=== PATIENT | male | born 1965 | race Caucasian/White ===

== ENCOUNTER 2016-07-03 09:23 | Emergency (ER) | payer OTHER ==
[~2016-07-03] VITALS: Ht 170.2 cm; Wt 80.0 kg
[~2016-07-03 09:23] MED LIST: ALBU8I INH; ENAL10TA7 PO; LEVA500T33 PO; MEDR4PAK3 PO
[2016-07-03 09:26] VITALS: BP 160/84; PULSE 111; RESP 24; TEMP 98.1; O2SAT 100
[2016-07-03 09:41] VITALS: BP 148/98; PULSE 93; RESP 18; O2SAT 100
[2016-07-03 09:44] VITALS: BP 148/89; PULSE 84; RESP 18; O2SAT 100
[2016-07-03] MEDS ORDERED: ONDANSETRON HCL 4 MG/2 ML VIAL IV PUSH ONE (09:45)
[2016-07-03] MEDS ORDERED: MORPHINE SULFATE 4 MG/ML INJ IV PUSH ONE (09:45)
[2016-07-03] MEDS ORDERED: ENAL10TA PO (09:56)
[2016-07-03] MEDS ORDERED: SODIUM CHLORID 0.9% 500 ML INJ 500 ML IV ONE (10:00)
[2016-07-03 10:24] LABS: AUTOMATED NEUTROPHIL # 4.4 TH/MM3 (1.8-7.7); BASOPHIL # 0.1 TH/MM3 (0-0.2); BASOPHIL % 1.2 % (0.0-2.0); EOSINOPHIL # 0.2 TH/MM3 (0-0.4); EOSINOPHIL % 2.2 % (0.0-4.0); HEMATOCRIT 43.4 % (39.0-51.0); HEMO FLAGS DIFF FINAL; LYMPH % 33.5 % (9.0-44.0); LYMPHOCYTE # 2.6 TH/MM3 (1.0-4.8); MEAN CELL VOLUME 97.6 FL (80.0-100.0); MEAN CORPUSCULAR HEMOGLOBIN 33.6 PG (27.0-34.0); MEAN CORPUSCULAR HGB CONC 34.4 % (32.0-36.0); MONO % 7.9 % (0.0-8.0); NEUT % 55.2 % (16.0-70.0); PLATELET COUNT 304 TH/MM3 (150-450); RED BLOOD COUNT 4.45 MIL/MM3 (4.50-5.90); RED CELL DISTRIBUTION WIDTH 13.2 % (11.6-17.2); WHITE BLOOD COUNT 7.9 TH/MM3 (4.0-11.0)
[2016-07-03 10:47] LABS: ALT (GPT) 25 U/L (12-78); ANION GAP 8 MEQ/L (5-15); AST (GOT) 15 U/L (15-37); BICARBONATE 26.5 MEQ/L (21.0-32.0); BLOOD UREA NITROGEN 10 MG/DL (7-18); CHLORIDE 108 MEQ/L (98-107); GLOMERULAR FILTRATION RATE 75 ML/MIN (>89); POTASSIUM 4.2 MEQ/L (3.5-5.1); SODIUM (NA) 142 MEQ/L (136-145)
[2016-07-03 10:49] LABS: ALKALINE PHOSPHATASE 103 U/L (45-117); TOTAL BILIRUBIN ADULT 0.5 MG/DL (0.2-1.0)
[2016-07-03 11:10] VITALS: BP 148/98; PULSE 110; RESP 20; O2SAT 99
[2016-07-03] MEDS ORDERED: IOHEXOL 350 MG/ML 10 ML VIAL (for RAD DIAG) IV ONE (11:39)
--- NOTE | 2016-07-03 11:42 | RADRPT ---
EXAM DATE/TIME: 07/03/2016 11:08 [facility] COMPARISON: No previous studies available for comparison. INDICATIONS : Lower abdominal pain and constipation for five days. IV CONTRAST: 71 cc Omnipaque 350 (iohexol) IV ORAL CONTRAST: No oral contrast ingested. RADIATION DOSE: 9.96 CTDIvol (mGy) MEDICAL HISTORY : Hypertension. SURGICAL HISTORY : None. ENCOUNTER: Initial ACUITY: 4 - 6 days PAIN SCALE: 5/10 LOCATION: Abdomen TECHNIQUE: Volumetric scanning of the abdomen and pelvis was performed. Using automated exposure control and ad justment of the mA and/or kV according to patient size, radiation dose was kept as low as reasonably achievable to obtain optimal diagnostic quality images. FINDINGS: LOWER LUNGS: The visualized lower lungs are clear. LIVER: Homogeneous density without lesion. There is no dilation of the biliary tree. No calcified gallston es. SPLEEN: Normal size without lesion. PANCREAS: Within normal limits. KIDNEYS: Normal in size and shape. There is no mass, stone or hydronephrosis. ADRENAL GLANDS: Within normal limits. VASCULAR: There is no aortic aneurysm. BOWEL/MESENTERY: Diffuse wall thickening descending sigmoid colon. No significant inflammatory changes. A few scattere d diverticula in the sigmoid colon. There is no free intraperitoneal air or fluid. ABDOMINAL WALL: Within normal limits. RETROPERITONEUM: There is no lymphadenopathy. BLADDER: No wall thickening or mass. REPRODUCTIVE: Within normal limits. INGUINAL: There is no lymphadenopathy or hernia. MUSCULOSKELETAL: Within normal limits for patient age. CONCLUSION: 1. Wall thickening versus nondistention descending and sigmoid colon which can be seen with colitis. 2. A few scattered diverticula. Chano Meek MD on July 03, 2016 at 11:39 Board Certified Radiologist. This report was verified electronically.
[2016-07-03] MEDS ORDERED: SODIUM CHLOR 0.9% 1000 ML INJ 1,000 ML IV ONE (11:45)
[2016-07-03] MEDS ORDERED: METR-1 PO (12:31)
[2016-07-03] MEDS ORDERED: CIPR500T2 PO (12:31)
--- NOTE | 2016-07-03 12:31 | PD ---
HPI Chief Complaint: Abdominal Pain Time Seen by Provider: 09:31 Travel History International Travel<30 days: No Contact w/Intl Traveler<30days: No Traveled to known affect area: No History of Present Illness HPI 51 y/o male presents with lower abdominal pain that is been present intermittently over the past couple weeks. He states he's even had a colonoscopy in the past that showed maybe mild diverticulitis. Quality pain is sharp. Severity is moderate. Pain is worse with movement. He denies other modifying factors. He denies other concurrent complaints. He states he's never had a CAT scan for the symptoms. PFSH Past Medical History Arthritis: No Asthma: No Autoimmune Disease: No Blood Disorders: No Anxiety: No Depression: No Heart Rhythm Problems: No Cancer: No Cardiovascular Problems: Yes High Cholesterol: No Chemotherapy: No Chest Pain: No Congestive Heart Failure: No COPD: No Cerebrovascular Accident: No Diabetes: No Diminished Hearing: No Endocrine: No Gastrointestinal Disorders: No GERD: No Glaucoma: No Genitourinary: No Headaches: No Hepatitis: No Hiatal Hernia: No Hypertension: Yes Immune Disorder: No Kidney Stones: No Musculoskeletal: No Neurologic: No Psychiatric: No Reproductive: No Respiratory: No Migraines: No Myocardial Infarction: No Radiation Therapy: No Renal Failure: No Seizures: No Sickle Cell Disease: No Sleep Apnea: No Thyroid Disease: No Ulcer: No Influenza Vaccination: No ?: Not Past Surgical History Abdominal Surgery: No AICD: No Appendectomy: No Arteriovenous Shunt: No Cardiac Surgery: No Cholecystectomy: No Ear Surgery: No Endocrine Surgery: No Eye Surgery: No Genitourinary Surgery: No Gynecologic Surgery: No Insulin Pump: No Joint Replacement: No Neurologic Surgery: No Oral Surgery: No Pacemaker: No Thoracic Surgery: No Other Surgery: Yes Social History Alcohol Use: Yes (BEER WEEKLY) Tobacco Use: Yes (1/3 PPD) Substance Use: No Allergies-Medications (Allergen,Severity, Reaction): Coded Allergies: Penicillin (Verified Allergy, Severe, RASH, 08/26/14) Egg Allergy (Verified Allergy, Unknown, 07/03/16) Flu Vaccine (Verified Allergy, Unknown, 07/03/16) Reported Meds & Prescriptions Reported Meds & Active Scripts Active Flagyl (Metronidazole) 500 Mg Tab 500 Mg PO BID 7 Days Ciprofloxacin (Ciprofloxacin HCl) 500 Mg Tab 500 Mg PO BID 7 Days Reported Enalapril (Enalapril Maleate) 10 Mg Tab 10 Mg PO BID Review of Systems Except as stated in HPI: all other systems reviewed are Neg Physical Exam Narrative GENERAL: Well-nourished, well-developed patient. SKIN: Warm and dry. HEAD: Normocephalic and atraumatic. EYES: No injection or drainage. ENT: No nasal drainage noted. NECK: Supple, trachea midline. CARDIOVASCULAR: Regular rate and rhythm RESPIRATORY: No increased effort. No accessory muscle use. GASTROINTESTINAL: Abdomen soft, mild tenderness suprapubic area, nondistended. No rebound or guarding BACK: Nontender without obvious deformity. NEUROLOGICAL: Awake and alert. Moves all extremities, Normal speech. Data Data Last Documented VS Vital Signs Date Time Temp Pulse Resp B/P Pulse Ox O2 Delivery O2 Flow Rate FiO2 07/03/16 11:10 110 20 148/98 99 Room Air 07/03/16 09:26 98.1 Orders Complete Blood Count With Diff (07/03/16 09:34) Comprehensive Metabolic Panel (07/03/16 09:34) Urinalysis - C+S If Indicated (07/03/16 09:34) Lipase (07/03/16 09:34) Ct Abd/Pel W Iv Contrast(Rout) (07/03/16 ) Iv Access Insert/Monitor (07/03/16 09:34) Oximetry (07/03/16 09:34) Ondansetron Inj (Zofran Inj) (07/03/16 09:45) Morphine Inj (Morphine Inj) (07/03/16 09:45) Sodium Chlorid 0.9% 500 Ml Inj (Ns 500 M (07/03/16 10:00) Sodium Chlor 0.9% 1000 Ml Inj (Ns 1000 M (07/03/16 11:45) Iohexol 350 Inj (Omnipaque 350 Inj) (07/03/16 11:39) Labs Laboratory Tests Test 07/03/16 07/03/16 09:52 12:16 White Blood Count 7.9 TH/MM3 Red Blood Count 4.45 MIL/MM3 Hemoglobin 14.9 GM/DL Hematocrit 43.4 % Mean Corpuscular Volume 97.6 FL Mean Corpuscular Hemoglobin 33.6 PG Mean Corpuscular Hemoglobin 34.4 % Concent Red Cell Distribution Width 13.2 % Platelet Count 304 TH/MM3 Mean Platelet Volume 8.4 FL Neutrophils (%) (Auto) 55.2 % Lymphocytes (%) (Auto) 33.5 % Monocytes (%) (Auto) 7.9 % Eosinophils (%) (Auto) 2.2 % Basophils (%) (Auto) 1.2 % Neutrophils # (Auto) 4.4 TH/MM3 Lymphocytes # (Auto) 2.6 TH/MM3 Monocytes # (Auto) 0.6 TH/MM3 Eosinophils # (Auto) 0.2 TH/MM3 Basophils # (Auto) 0.1 TH/MM3 CBC Comment DIFF FINAL Differential Comment Sodium Level 142 MEQ/L Potassium Level 4.2 MEQ/L Chloride Level 108 MEQ/L Carbon Dioxide Level 26.5 MEQ/L Anion Gap 8 MEQ/L Blood Urea Nitrogen 10 MG/DL Creatinine 1.04 MG/DL Estimat Glomerular Filtration 75 ML/MIN Rate Random Glucose 96 MG/DL Calcium Level 9.2 MG/DL Total Bilirubin 0.5 MG/DL Aspartate Amino Transf 15 U/L (AST/SGOT) Alanine Aminotransferase 25 U/L (ALT/SGPT) Alkaline Phosphatase 103 U/L Total Protein 7.4 GM/DL Albumin 4.2 GM/DL Lipase 205 U/L Urine Color LIGHT-YELLOW Urine Turbidity CLEAR Urine pH 7.0 Urine Specific [place] 1.032 Urine Protein NEG mg/dL Urine Glucose (UA) NEG mg/dL Urine Ketones TRACE mg/dL Urine Occult Blood NEG Urine Nitrite NEG Urine Bilirubin NEG Urine Urobilinogen LESS THAN 2.0 MG/DL Urine Leukocyte Esterase NEG Urine RBC LESS THAN 1 /hpf Urine WBC LESS THAN 1 /hpf Urine Mucus FEW /lpf Microscopic Urinalysis Comment CULT NOT INDICATED MDM Medical Decision Making Medical Screen Exam Complete: Yes Emergency Medical Condition: Yes Medical Record Reviewed: Yes (past history confirmed) Interpretation(s) CBC & BMP Diagram 07/03/16 09:52 Last 24 hours Impressions Abdomen/Pelvis CT 07/03/16 0000 Signed Impressions: Service Date/Time: Sunday, July 03, 2016 11:08 - CONCLUSION: 1. Wall thickening versus nondistention descending and sigmoid colon which can be seen with colitis. 2. A few scattered diverticula. Chano Meek MD Differential Diagnosis Diverticulitis, abscess, UTI, stone Narrative Course Will check blood work, urinalysis, imaging and dose with pain medication and reevaluate Patient denies any new complaints and states that they are feeling better. Patient happy with care, all questions answered. Patient knows that follow up is incumbent on them and to return to the emergency room immediately if new or worsening symptoms develop. Patient given strict return precautions, vitals reviewed and are normal, agrees to further workup as an outpatient. Diagnosis Primary Impression: Colitis Patient Instructions: General Instructions Additional Instructions: Return as needed, follow with primary this week, Tylenol as needed Med/Other Pt SpecificInfo: Prescription(s) given Scripts Metronidazole (Flagyl)500 Mg Adx745 Mg PO BID 7 Days Prov:Mattie Brink MD 07/03/16 Ciprofloxacin 500 Mg [id number] Mg PO BID 7 Days Ref 0 Prov:Mattie Brink MD 07/03/16 Disposition: 01 DISCHARGE HOME Condition: Stable Mattie Brink MD Jul 03, 2016 12:31
[2016-07-03 12:39] LABS: BLOOD, URINE NEG (NEG); COMMENT (UR) CULT NOT INDICATED; CULTURE IF INDICATED CULT NOT INDICATED; GLUCOSE,URINE NEG (NEG); KETONE, URINE TRACE mg/dL (NEG); MUCUS URINE FEW /lpf (OCC); NITRITE,URINE NEG (NEG); URINE COLOR LIGHT-YELLOW (YELLW/STRAW)
[2016-08-08] MEDS ORDERED: STOO100C PO (08:15)
== END 2016-07-03 12:42 | disposition home or self-care (01) ==
LOC: NEPE 09:23
DX: K52.9 Noninfective gastroenteritis and colitis, unspecified (principal); I10 Essential (primary) hypertension; F17.210 Nicotine dependence, cigarettes, uncomplicated
CPT/HCPCS: 74177; 80053; 81001; 83690; 85025; 96361; 96374; 99284; J2270; J2405; J7030; J7040; Q9967

== ENCOUNTER 2016-07-27 12:22 | Emergency (ER) | payer OTHER ==
[~2016-07-27] VITALS: Ht 170.2 cm; Wt 75.0 kg
[~2016-07-27 12:22] MED LIST changes: -ALBU8I INH; +CIPR500T2 PO; +ENAL10TA PO; -ENAL10TA7 PO; -LEVA500T33 PO; -MEDR4PAK3 PO; +METR-1 PO
[2016-07-27 12:23] VITALS: BP 155/79; PULSE 109; RESP 17; TEMP 97.6; O2SAT 98
[2016-07-27] MEDS ORDERED: SODIUM CHLOR 0.9% 1000 ML INJ 1,000 ML IV SCH (12:40)
[2016-07-27 12:43] VITALS: RESP 19; O2SAT 100
[2016-07-27] MEDS ORDERED: HYDR-3533 PO ×2 (12:43→15:30)
[2016-07-27] MEDS ORDERED: SODIUM CHLORIDE 0.9% FLUSH 10 ML FLUSH IV FLUSH PRN (12:45)
[2016-07-27] MEDS ORDERED: MORPHINE SULFATE 4 MG/ML INJ IV PUSH ONE (12:45)
[2016-07-27] MEDS ORDERED: ONDANSETRON HCL 4 MG/2 ML VIAL IVP ONE (12:45)
--- NOTE | 2016-07-27 12:55 | PD ---
HPI Chief Complaint: Abdominal Pain Time Seen by Provider: 12:40 Travel History International Travel<30 days: No Contact w/Intl Traveler<30days: No Traveled to known affect area: No History of Present Illness HPI 51-year-old male with history of recent visit for colitis, has been having at least 3 weeks' history of nausea, vomiting, abdominal pains, hemorrhoids and blood in the stools. He was sent in to see GI today, states that his abdominal pain has been increasing for several days and it is a 9 out of 10 today. He was told to come to the ER for further evaluation. He denies any fevers, chest pains, shortness of breath, or any other symptoms. He does not know any exacerbating or alleviating factors. Modifying Factors: None Associated Signs & Symptoms: nausea, vomiting, diarrhea, blood in the stools Risk Factors: None PFSH Past Medical History Arthritis: No Asthma: No Autoimmune Disease: No Blood Disorders: No Anxiety: No Depression: No Heart Rhythm Problems: No Cancer: No Cardiovascular Problems: Yes High Cholesterol: No Chemotherapy: No Chest Pain: No Congestive Heart Failure: No COPD: No Cerebrovascular Accident: No Diabetes: No Diminished Hearing: No Endocrine: No Gastrointestinal Disorders: No GERD: No Glaucoma: No Genitourinary: No Headaches: No Hepatitis: No Hiatal Hernia: No Hypertension: Yes Immune Disorder: No Kidney Stones: No Musculoskeletal: No Neurologic: No Psychiatric: No Reproductive: No Respiratory: No Migraines: No Myocardial Infarction: No Radiation Therapy: No Renal Failure: No Seizures: No Sickle Cell Disease: No Sleep Apnea: No Thyroid Disease: No Ulcer: No Past Surgical History Abdominal Surgery: No AICD: No Appendectomy: No Arteriovenous Shunt: No Cardiac Surgery: No Cholecystectomy: No Ear Surgery: No Endocrine Surgery: No Eye Surgery: No Genitourinary Surgery: No Gynecologic Surgery: No Insulin Pump: No Joint Replacement: No Neurologic Surgery: No Oral Surgery: No Pacemaker: No Thoracic Surgery: No Other Surgery: Yes Social History Alcohol Use: Yes (BEER WEEKLY) Tobacco Use: Yes (05/08 PPD) Substance Use: No Allergies-Medications (Allergen,Severity, Reaction): Coded Allergies: Penicillin (Verified Allergy, Severe, RASH, 07/27/16) Egg Allergy (Verified Allergy, Unknown, 07/27/16) Flu Vaccine (Verified Allergy, Unknown, 3/24/17) Reported Meds & Prescriptions Reported Meds & Active Scripts Active Lortab (Hydrocodone-Acetaminophen) 5-325 Mg Tab 1-2 Tab PO Q6H PRN Anusol-Hc Rectal (Hydrocortisone Rectal) 2.5% Cream 1 Applic RECTAL TID Reported Lortab (Hydrocodone-Acetaminophen) 5-325 Mg Tab 1 Tab PO Q4H PRN Enalapril (Enalapril Maleate) 10 Mg Tab 10 Mg PO BID Review of Systems Except as stated in HPI: all other systems reviewed are Neg Physical Exam Narrative GENERAL: Middle age white male patient currently in moderate distress, awake, oriented 3. SKIN: Warm and dry. HEAD: Atraumatic. Normocephalic. EYES: Pupils equal and round. No scleral icterus. No injection or drainage. ENT: No nasal bleeding or discharge. Mucous membranes pink and moist. NECK: Trachea midline. No JVD. CARDIOVASCULAR: Regular rate and rhythm. No murmur appreciated. RESPIRATORY: No accessory muscle use. Clear to auscultation. Breath sounds equal bilaterally. GASTROINTESTINAL: Abdomen soft, lower abdominal tenderness without guarding or rebound, nondistended. Hepatic and splenic margins not palpable. RECTAL EXAM: No masses or tenderness, patient has significant external hemorrhoids with some bleeding hemorrhoids, stool is brown. MUSCULOSKELETAL: No obvious deformities. No clubbing. No cyanosis. No edema. NEUROLOGICAL: Awake and alert. No obvious cranial nerve deficits. Motor grossly within normal limits. Normal speech. PSYCHIATRIC: Appropriate mood and affect; insight and judgment normal. Data Data Last Documented VS Vital Signs Date Time Temp Pulse Resp B/P Pulse Ox O2 Delivery O2 Flow Rate FiO2 07/27/16 12:43 19 100 Room Air 07/27/16 12:23 97.6 109 155/79 Orders Complete Blood Count With Diff (07/27/16 12:40) Comprehensive Metabolic Panel (07/27/16 12:40) Lipase (07/27/16 12:40) Urinalysis - C+S If Indicated (07/27/16 12:40) Ct Abd/Pel W Iv Contrast(Rout) (07/27/16 12:40) Iv Access Insert/Monitor (07/27/16 12:40) Ecg Monitoring (07/27/16 12:40) Oximetry (07/27/16 12:40) Morphine Inj (Morphine Inj) (07/27/16 12:45) Ondansetron Inj (Zofran Inj) (07/27/16 12:45) Sodium Chlor 0.9% 1000 Ml Inj (Ns 1000 M (07/27/16 12:40) Sodium Chloride 0.9% Flush (Ns Flush) (07/27/16 12:45) Act Partial Throm Time (Ptt) (07/27/16 13:06) Prothrombin Time / Inr (Pt) (07/27/16 13:06) Iohexol 350 Inj (Omnipaque 350 Inj) (07/27/16 14:21) Labs Laboratory Tests Test 07/27/16 07/27/16 07/27/16 12:48 14:08 14:54 White Blood Count 8.4 TH/MM3 Red Blood Count 4.34 MIL/MM3 Hemoglobin 14.3 GM/DL Hematocrit 42.0 % Mean Corpuscular Volume 96.8 FL Mean Corpuscular Hemoglobin 33.0 PG Mean Corpuscular Hemoglobin 34.1 % Concent Red Cell Distribution Width 13.0 % Platelet Count 308 TH/MM3 Mean Platelet Volume 8.3 FL Neutrophils (%) (Auto) 57.1 % Lymphocytes (%) (Auto) 32.9 % Monocytes (%) (Auto) 7.0 % Eosinophils (%) (Auto) 2.1 % Basophils (%) (Auto) 0.9 % Neutrophils # (Auto) 4.8 TH/MM3 Lymphocytes # (Auto) 2.7 TH/MM3 Monocytes # (Auto) 0.6 TH/MM3 Eosinophils # (Auto) 0.2 TH/MM3 Basophils # (Auto) 0.1 TH/MM3 CBC Comment DIFF FINAL Differential Comment Sodium Level 141 MEQ/L Potassium Level 4.1 MEQ/L Chloride Level 108 MEQ/L Carbon Dioxide Level 26.5 MEQ/L Anion Gap 7 MEQ/L Blood Urea Nitrogen 10 MG/DL Creatinine 1.03 MG/DL Estimat Glomerular Filtration 76 ML/MIN Rate Random Glucose 100 MG/DL Calcium Level 9.3 MG/DL Total Bilirubin 0.4 MG/DL Aspartate Amino Transf 15 U/L (AST/SGOT) Alanine Aminotransferase 25 U/L (ALT/SGPT) Alkaline Phosphatase 92 U/L Total Protein 7.4 GM/DL Albumin 4.0 GM/DL Lipase 148 U/L Prothrombin Time 10.6 SEC Prothromb Time International 1.0 RATIO Ratio Activated Partial 29.4 SEC Thromboplast Time Urine Color LIGHT-YELLOW Urine Turbidity CLEAR Urine pH 7.0 Urine Specific [place] 1.023 Urine Protein NEG mg/dL Urine Glucose (UA) NEG mg/dL Urine Ketones NEG mg/dL Urine Occult Blood NEG Urine Nitrite NEG Urine Bilirubin NEG Urine Urobilinogen LESS THAN 2.0 MG/DL Urine Leukocyte Esterase NEG Urine WBC 1 /hpf Microscopic Urinalysis Comment CULT NOT INDICATED MDM Medical Decision Making Medical Screen Exam Complete: Yes Emergency Medical Condition: Yes Medical Record Reviewed: Yes Interpretation(s) Laboratory Tests Test 07/27/16 12:48 Red Blood Count 4.34 MIL/MM3 (4.50-5.90) Chloride Level 108 MEQ/L (98-107) Estimat Glomerular Filtration 76 ML/MIN (>89) Rate Last 24 hours Impressions Abdomen/Pelvis CT 07/27/16 1240 Signed Impressions: Service Date/Time: Wednesday, July 27, 2016 13:53 - CONCLUSION: Normal examination. Shayne Jernigan MD Differential Diagnosis Nausea, vomiting, blood in the stools, abdominal pain, diarrheacolitis versus gastroenteritis versus GI bleeding versus diverticulitis Narrative Course H&H is stable. Lab work did not show significant dehydration or metabolic issues. CT of the abdomen is otherwise unremarkable. He has significant hemorrhoid on rectal exam which could be causing some discomfort. At this point , I do not see any other acute processes and my plan would be to release the patient with follow-up to GI. Return for any worsening in symptoms as necessary. The plan has been discussed with him and he states understanding. Diagnosis Primary Impression: Abdominal pain Additional Impression: External bleeding hemorrhoids Med/Other Pt SpecificInfo: Prescription(s) given Scripts Ondansetron Odt (Zofran Odt)4 Mg Tab4 Mg SL Q6HR PRN (Nausea/Vomiting) #7 TAB Ref 0 Prov:Luis Eduardo Aguillon MD 07/27/16 Hydrocodone-Acetaminophen (Lortab)5-325 Mg Tab1-2 Tab PO Q6H PRN (PAIN) #15 TAB Ref 0 Prov:Luis Eduardo Aguillon MD 07/27/16 Hydrocortisone Rectal (Anusol-Hc Rectal)2.5% Cream1 Applic RECTAL TID #30 GM Ref 0 Prov:Luis Eduardo Aguillon MD 07/27/16 Disposition: 01 DISCHARGE HOME Condition: Stable Luis Eduardo Aguillon MD Jul 27, 2016 12:55
[2016-07-27 13:09] LABS: AUTOMATED NEUTROPHIL # 4.8 TH/MM3 (1.8-7.7); BASOPHIL # 0.1 TH/MM3 (0-0.2); BASOPHIL % 0.9 % (0.0-2.0); EOSINOPHIL # 0.2 TH/MM3 (0-0.4); EOSINOPHIL % 2.1 % (0.0-4.0); HEMO FLAGS DIFF FINAL; LYMPH % 32.9 % (9.0-44.0); LYMPHOCYTE # 2.7 TH/MM3 (1.0-4.8); MEAN CELL VOLUME 96.8 FL (80.0-100.0); MEAN CORPUSCULAR HGB CONC 34.1 % (32.0-36.0); NEUT % 57.1 % (16.0-70.0); PLATELET COUNT 308 TH/MM3 (150-450); RED BLOOD COUNT 4.34 MIL/MM3 (4.50-5.90); WHITE BLOOD COUNT 8.4 TH/MM3 (4.0-11.0)
[2016-07-27 13:33] LABS: ALT (GPT) 25 U/L (12-78); ANION GAP 7 MEQ/L (5-15); AST (GOT) 15 U/L (15-37); BICARBONATE 26.5 MEQ/L (21.0-32.0); BLOOD UREA NITROGEN 10 MG/DL (7-18); CHLORIDE 108 MEQ/L (98-107); GLOMERULAR FILTRATION RATE 76 ML/MIN (>89); POTASSIUM 4.1 MEQ/L (3.5-5.1); SODIUM (NA) 141 MEQ/L (136-145)
[2016-07-27 13:36] LABS: ALKALINE PHOSPHATASE 92 U/L (45-117); TOTAL BILIRUBIN ADULT 0.4 MG/DL (0.2-1.0)
[2016-07-27] MEDS ORDERED: IOHEXOL 350 MG/ML 10 ML VIAL (for RAD DIAG) IV ONE (14:21)
[2016-07-27 14:30] LABS: APTT (PATIENT) 29.4 SEC (24.3-30.1); PROTHROMBIN TIME - PATIENT 10.6 SEC (9.8-11.6)
--- NOTE | 2016-07-27 14:40 | RADRPT ---
EXAM DATE/TIME: 07/27/2016 13:53 [facility] COMPARISON: No previous studies available for comparison. INDICATIONS : Diffuse abdomen pain. IV CONTRAST: 91 cc Omnipaque 350 (iohexol) IV ORAL CONTRAST: No oral contrast ingested. RADIATION DOSE: 11.14 CTDIvol (mGy) MEDICAL HISTORY : Cardiovascular disease. Hypertension. SURGICAL HISTORY : None. ENCOUNTER: Initial ACUITY: 1 day PAIN SCALE: 3/10 LOCATION: abdomen TECHNIQUE: Volumetric scanning of the abdomen and pelvis was performed. Using automated exposure control and ad justment of the mA and/or kV according to patient size, radiation dose was kept as low as reasonably achievable to obtain optimal diagnostic quality images. FINDINGS: LOWER LUNGS: The visualized lower lungs are clear. LIVER: Homogeneous density without lesion. There is no dilation of the biliary tree. No calcified gallston es. SPLEEN: Normal size without lesion. PANCREAS: Within normal limits. KIDNEYS: Normal in size and shape. There is no mass, stone or hydronephrosis. ADRENAL GLANDS: Within normal limits. VASCULAR: There is no aortic aneurysm. BOWEL/MESENTERY: The stomach, small bowel, and colon demonstrate no acute abnormality. There is no free intraperitone al air or fluid. ABDOMINAL WALL: Within normal limits. RETROPERITONEUM: There is no lymphadenopathy. BLADDER: No wall thickening or mass. REPRODUCTIVE: Within normal limits. INGUINAL: There is no lymphadenopathy or hernia. MUSCULOSKELETAL: Within normal limits for patient age. CONCLUSION: Normal examination. Shayne Jernigan MD on July 27, 2016 at 14:33 Board Certified Radiologist. This report was verified electronically.
[2016-07-27 15:25] LABS: BLOOD, URINE NEG (NEG); GLUCOSE,URINE NEG (NEG); KETONE, URINE NEG (NEG); NITRITE,URINE NEG (NEG); URINE COLOR LIGHT-YELLOW (YELLW/STRAW)
[2016-07-27 15:27] LABS: COMMENT (UR) CULT NOT INDICATED; CULTURE IF INDICATED CULT NOT INDICATED
[2016-07-27] MEDS ORDERED: HYDR2.5%T RECTAL (15:30)
[2016-07-27] MEDS ORDERED: ZOFR4TAB3 SL (15:40)
[2016-08-08] MEDS ORDERED: STOO100C PO (08:15)
== END 2016-07-27 16:41 | disposition home or self-care (01) ==
LOC: NEPE 12:22
DX: R10.9 Unspecified abdominal pain (principal); R11.2 Nausea with vomiting, unspecified; K92.1 Melena; K64.9 Unspecified hemorrhoids; I10 Essential (primary) hypertension; F17.210 Nicotine dependence, cigarettes, uncomplicated
CPT/HCPCS: 74177; 80053; 81001; 83690; 85025; 85610; 85730; 96361; 96374; 96375; 99284; J2270; J2405; J7030; Q9967

== ENCOUNTER → 2016-08-08 | Outpatient (CLI) | payer OTHER ==
[~2016-08-08] MED LIST changes: -CIPR500T2 PO; +HYDR-3533 PO; +HYDR2.5%T RECTAL; -METR-1 PO; +OXYC1TAB36 PO; +STOO100C PO; +Silv Sulfadiazine-Lidocaine Cr RECTAL; +ZOFR4TAB3 SL
[2016-08-08 08:57] LABS: AUTOMATED NEUTROPHIL # 2.9 TH/MM3 (1.8-7.7); BASOPHIL # 0.1 TH/MM3 (0-0.2); BASOPHIL % 1.4 % (0.0-2.0); EOSINOPHIL # 0.3 TH/MM3 (0-0.4); EOSINOPHIL % 5.2 % (0.0-4.0); HEMATOCRIT 41.1 % (39.0-51.0); HEMO FLAGS DIFF FINAL; LYMPH % 32.1 % (9.0-44.0); LYMPHOCYTE # 1.8 TH/MM3 (1.0-4.8); MEAN CELL VOLUME 97.6 FL (80.0-100.0); MEAN CORPUSCULAR HEMOGLOBIN 33.4 PG (27.0-34.0); MEAN CORPUSCULAR HGB CONC 34.2 % (32.0-36.0); MONO % 10.9 % (0.0-8.0); NEUT % 50.4 % (16.0-70.0); PLATELET COUNT 268 TH/MM3 (150-450); RED BLOOD COUNT 4.21 MIL/MM3 (4.50-5.90); RED CELL DISTRIBUTION WIDTH 13.1 % (11.6-17.2); WHITE BLOOD COUNT 5.7 TH/MM3 (4.0-11.0)
--- NOTE | 2016-08-08 09:31 | RADRPT ---
EXAM DATE/TIME: 08/08/2016 08:51 [facility] COMPARISON: CHEST PA & LAT, August 26, 2014, 10:19. INDICATIONS : Evaluate for pneumonia, pneumothorax and communcable disease. pre op for anorectoplasty. MEDICAL HISTORY : None. SURGICAL HISTORY : None. ENCOUNTER: Initial ACUITY: 1 day PAIN SCORE: 0/10 LOCATION: Bilateral chest FINDINGS: PA and lateral views of the chest demonstrate the lungs to be symmetrically aerated without evidence of mass, infiltrate or effusion. The cardiomediastinal contours are unremarkable. Osseous structure s are intact. CONCLUSION: 1. No acute cardiopulmonary findings. Stable compared to previous. Iftikhar Lua MD on August 08, 2016 at 9:29 Board Certified Radiologist. This report was verified electronically.
[2016-08-08 09:39] LABS: ALKALINE PHOSPHATASE 97 U/L (45-117); ALT (GPT) 22 U/L (12-78); ANION GAP 6 MEQ/L (5-15); AST (GOT) 13 U/L (15-37); BICARBONATE 28.1 MEQ/L (21.0-32.0); BLOOD UREA NITROGEN 11 MG/DL (7-18); CHLORIDE 108 MEQ/L (98-107); GLOMERULAR FILTRATION RATE 85 ML/MIN (>89); GLUCOSE,FASTING 95 MG/DL (74-99); POTASSIUM 4.7 MEQ/L (3.5-5.1); SODIUM (NA) 142 MEQ/L (136-145); TOTAL BILIRUBIN ADULT 0.2 MG/DL (0.2-1.0)
[2016-08-08 10:33] LABS: BLOOD, URINE NEG (NEG); GLUCOSE,URINE NEG (NEG); KETONE, URINE NEG (NEG); MUCUS URINE FEW /lpf (OCC); NITRITE,URINE NEG (NEG); URINE COLOR LIGHT-YELLOW (YELLW/STRAW)
[2016-08-08 10:34] LABS: COMMENT (UR) CULT NOT INDICATED; CULTURE IF INDICATED CULT NOT INDICATED
--- NOTE | 2016-08-08 12:07 | EKG ---
Date Performed: 08/08/2016 Time Performed: 08:28:30 PTAGE: 51 years EKG: Sinus rhythm NORMAL ECG PREVIOUS TRACING : 09/25/2006 10.25 DOCTOR: Medhat Spencer Interpretating Date/Time 08/08/2016 12:06:52
== END ==
LOC: CPRE 07:53
PROVIDERS: ATTEND Colon & Rectal Surgery
DX: Z01.810 Encounter for preprocedural cardiovascular examination (principal); Z01.811 Encounter for preprocedural respiratory examination; Z01.812 Encounter for preprocedural laboratory examination; K64.3 Fourth degree hemorrhoids
CPT/HCPCS: 36415; 71020; 80053; 81001; 85025; 93005

== ENCOUNTER 2016-08-15 07:13 | Day surgery (SDC) | payer OTHER ==
[~2016-08-15] VITALS: Ht 170.2 cm; Wt 72.5 kg
[~2016-08-15 07:13] MED LIST changes: -OXYC1TAB36 PO; -Silv Sulfadiazine-Lidocaine Cr RECTAL
[2016-08-15 08:00] VITALS: BP 148/93; PULSE 76; RESP 18; TEMP 98.4; O2SAT 99
[2016-08-15] MEDS ORDERED: CHLORHEXIDINE GLUCONATE 2 % 1 PACK (2 CLOTHS) TOPICAL PRN (08:00)
[2016-08-15] MEDS ORDERED: SODIUM CHLORID 0.9% 500 ML IV PRN (08:00)
[2016-08-15] MEDS ORDERED: LACTATED RINGER'S 1000 ML IV PRN (08:00)
[2016-08-15] MEDS ORDERED: POVIDONE IODINE 5% (ANTISEPSIS KIT) 4 APPLICATIONS EACH NARE PRN (08:00)
[2016-08-15] MEDS ORDERED: METOPROLOL TARTRATE 25 MG TAB PO PRN (08:00)
[2016-08-15] MEDS ORDERED: INSULIN HUMAN REGULAR 1,000 UNITS/10 ML VIAL SQ PRN (08:00)
--- NOTE | 2016-08-15 08:33 | PD.HP.UP ---
H&P Update Note The Pre-Admit History and Physical Examination regarding the above named patient was reviewed (including, but not limited to, vital signs, heart, lungs, co-morbid conditions), and upon re-examination it is noted that: the patient's condition has not significantly changed since the last examination. Mick Purvis MD Aug 15, 2016 08:33
[2016-08-15] MEDS ORDERED: LIDOCAINE 1%/EPINEPHrine 1:100,000 SOLN 50 ML VIAL ONE (09:25)
[2016-08-15] MEDS ORDERED: BUPIVACAINE/EPINEPHRINE 0.5% 50 ML VIAL ONE (09:25)
[2016-08-15] MEDS ORDERED: MIDAZOLAM HCL 2 MG/2 ML VIAL ONE (09:32)
[2016-08-15] MEDS ORDERED: FAMOTIDINE 20 MG/2 ML VIAL ONE (09:33)
[2016-08-15] MEDS ORDERED: SILVER SULFADIAZINE/LIDOCAINE CREAM 60 GM JAR RECTAL PRN (11:00)
[2016-08-15] MEDS ORDERED: ePHEDrine/NS 25 MG/5 ML SYR IV ONE (11:16)
[2016-08-15] MEDS ORDERED: PROPOFOL 200 MG/20 ML AMP IV ONE (11:16)
[2016-08-15] MEDS ORDERED: PHENYLEPH/NS 1000 MCG/10 ML SYR IV ONE (11:16)
[2016-08-15] MEDS ORDERED: ONDANSETRON HCL 4 MG/2 ML VIAL IV PUSH ONE (11:16)
[2016-08-15] MEDS ORDERED: *MEPERIDINE 25 MG INJ VIAL PERIprocedural Use ONLY ONE (11:43)
[2016-08-15] MEDS ORDERED: fentaNYL CITRATE 250 MCG/5 ML AMP ONE (11:48)
[2016-08-15] MEDS ORDERED: MORPHINE SULFATE 4 MG/ML INJ ONE (11:48)
[2016-08-15 12:00] VITALS: BP 121/76; PULSE 93; RESP 18; TEMP 97; O2SAT 98
[2016-08-15] MEDS ORDERED: *morphine SULFATE 8 MG/ML PERIprocedure ONLY ONE ×2 (12:07→12:22)
[2016-08-15] MEDS ORDERED: ONDANSETRON HCL 4 MG/2 ML VIAL IV PUSH PRN (12:15)
[2016-08-15] MEDS ORDERED: DO NOT ADM ANY ANTICOAGULANT DRUGS PRN (12:15)
[2016-08-15] MEDS: oxyCODONE/ACETAMINOPHEN 10 MG/325 MG TAB PO PRN ×3 (12:43→20:30)
[2016-08-15] MEDS: HYDROmorphone HCL PF 1 MG/ML VIAL IV PRN ×3 (13:08→17:55)
[2016-08-15] MEDS: ENALAPRIL MALEATE 10 MG TAB PO SCH ×2 (13:57→20:31)
[2016-08-15 16:00] VITALS: BP 131/77; PULSE 95; RESP 16; TEMP 95.8; O2SAT 92
[2016-08-15 20:00] VITALS: BP 143/72; PULSE 82; RESP 16; TEMP 98; O2SAT 99
[2016-08-15] MEDS ORDERED: oxyCODONE/ACETAMINOPHEN 10 MG/325 MG TAB PO PRN ×2 (23:00)
[2016-08-16] VITALS: BP 126/67; PULSE 84; RESP 18; TEMP 98.2; O2SAT 99
[2016-08-16] MEDS: oxyCODONE/ACETAMINOPHEN 10 MG/325 MG TAB PO PRN ×4 (00:27→12:19)
[2016-08-16] MEDS ORDERED: oxyCODONE/ACETAMINOPHEN 10 MG/325 MG TAB PO PRN (00:30)
[2016-08-16 04:00] VITALS: BP 124/65; PULSE 81; RESP 20; TEMP 97.8; O2SAT 100
[2016-08-16] MEDS ORDERED: KETOROLAC TROMETHAMINE 30 MG/ML (IVP) VIAL IV PUSH PRN (07:30)
[2016-08-16] MEDS ORDERED: Silv Sulfadiazine-Lidocaine Cr RECTAL (07:31)
[2016-08-16] MEDS ORDERED: OXYC1TAB36 PO (07:31)
[2016-08-16 08:00] VITALS: BP 146/88; PULSE 89; RESP 18; TEMP 98; O2SAT 100
[2016-08-16] MEDS: ENALAPRIL MALEATE 10 MG TAB PO SCH (08:18)
[2016-08-16 09:03] VITALS: O2SAT 96
[2016-08-16 12:00] VITALS: BP 112/63; PULSE 93; RESP 19; TEMP 96.8; O2SAT 100
--- NOTE | 2016-08-18 07:32 | MP ---
cc: MADELIN ANTONIO M.D. DATE OF SURGERY: 08/15/2016 PREOPERATIVE DIAGNOSIS: Grade IV hemorrhoids. OPERATION: Exam under anesthesia with anal rectoplasty. POSTOPERATIVE DIAGNOSIS Exam under anesthesia with anal rectoplasty. SURGEON Dr. Antonio PROCEDURE The patient was placed in the supine position. After adequate general anesthesia he was turned and placed in the prone jackknife position. His buttocks were taped apart, prepped with Betadine solution and draped in the usual sterile fashion. Initially local anesthesia was obtained by injection of 1% Xylocaine / 0.5% Marcaine with epinephrine. The anal canal was gently dilated and a half-banerjee retractor inserted. Examination revealed rather large friable prolapsing internal-external hemorrhoids in all three quadrants. There were quite friable and bled easily. Rectal vault appeared to be inflammatory but had no sign of acute colitis. First elliptical incision was made over the large hemorrhoidal mass in the left lateral quadrant taking the tissue off the internal, external sphincter. The pedicle was dissected up into the anal canal and divided using electrocautery. The mucosal defect in the anoderm were then closed using a running Vicryl suture for the mucosa and a chromic catgut suture for the anoderm. Several other [id number] sutures of 3-0 Vicryl were placed as well. Similar dissection was then performed in the right posterior and right anterior quadrants. At completion the anal canal had adequate lumen size. All surgical sites were hemostatic. Small Surgicel dressing placed in the anal canal and a large fluff dressing placed externally. The patient tolerated the procedure quite well and was brought to recovery room in stable condition. Sponge and needle counts were correct at the end of the procedure. MD OSWALD Hillman/holly /7:47 AM /7:17 AM
== END 2016-08-16 15:38 | disposition home or self-care (01) ==
LOC: HSDC 07:13 → N07A 12:41 → HSDC 08-16 15:38
PROVIDERS: ATTEND Colon & Rectal Surgery
DX: K64.3 Fourth degree hemorrhoids (principal)
CPT/HCPCS: 00902; 46947; 88304; J1170; J2175; J2250; J2270; J2370; J2405; J3010; J7120

== ENCOUNTER 2016-08-26 07:11 | Emergency (ER) | payer OTHER ==
[~2016-08-26] VITALS: Ht 170.2 cm; Wt 68.0 kg
[~2016-08-26 07:11] MED LIST changes: -HYDR-3533 PO; -HYDR2.5%T RECTAL; +OXYC1TAB36 PO; +Silv Sulfadiazine-Lidocaine Cr RECTAL
[2016-08-26 07:13] VITALS: BP 110/64; PULSE 120; RESP 24; TEMP 97.7; O2SAT 99
[2016-08-26] MEDS ORDERED: MORPHINE SULFATE 4 MG/ML INJ IV PUSH ONE (08:00)
[2016-08-26] MEDS ORDERED: ONDANSETRON HCL 4 MG/2 ML VIAL IV PUSH ONE (08:00)
[2016-08-26] MEDS ORDERED: SODIUM CHLOR 0.9% 1000 ML INJ 1,000 ML IV ONE (08:00)
[2016-08-26 08:09] VITALS: BP 112/64; PULSE 74; RESP 20; O2SAT 98
[2016-08-26 08:10] LABS: AUTOMATED NEUTROPHIL # 17.8 TH/MM3 (1.8-7.7); BASOPHIL # 0.1 TH/MM3 (0-0.2); BASOPHIL % 0.6 % (0.0-2.0); EOSINOPHIL # 0.1 TH/MM3 (0-0.4); EOSINOPHIL % 0.3 % (0.0-4.0); HEMATOCRIT 39.4 % (39.0-51.0); HEMO FLAGS DIFF FINAL; LYMPH % 5.1 % (9.0-44.0); MEAN CELL VOLUME 96.1 FL (80.0-100.0); MEAN CORPUSCULAR HEMOGLOBIN 31.9 PG (27.0-34.0); MEAN CORPUSCULAR HGB CONC 33.2 % (32.0-36.0); MONO % 3.9 % (0.0-8.0); NEUT % 90.1 % (16.0-70.0); PLATELET COUNT 467 TH/MM3 (150-450); RED CELL DISTRIBUTION WIDTH 13.6 % (11.6-17.2); WHITE BLOOD COUNT 19.7 TH/MM3 (4.0-11.0)
[2016-08-26 08:25] LABS: BICARBONATE 23.1 MEQ/L (21.0-32.0); POTASSIUM 4.3 MEQ/L (3.5-5.1)
[2016-08-26 08:27] LABS: APTT (PATIENT) 31.3 SEC (24.3-30.1); PROTHROMBIN TIME - PATIENT 11.3 SEC (9.8-11.6)
[2016-08-26] MEDS ORDERED: IOHEXOL 350 MG/ML 10 ML VIAL (for RAD DIAG) IV ONE (09:01)
--- NOTE | 2016-08-26 09:11 | RADRPT ---
EXAM DATE/TIME: 08/26/2016 08:46 [facility] COMPARISON: No previous studies available for comparison. INDICATIONS : Blood in stool status post hemorrhoidectomy. IV CONTRAST: 100 cc Omnipaque 350 (iohexol) IV ORAL CONTRAST: No oral contrast ingested. RADIATION DOSE: 10.34 CTDIvol (mGy) MEDICAL HISTORY : Hypertension. Cardiovascular disease SURGICAL HISTORY : Hemorrhoidectomy. ENCOUNTER: Initial ACUITY: 1 day PAIN SCALE: 8/10 LOCATION: Bilateral rectum TECHNIQUE: Volumetric scanning of the pelvis was performed. Using automated exposure control and adjustment of t he mA and/or kV according to patient size, radiation dose was kept as low as reasonably achievable to obtain optimal diagnostic quality images. FINDINGS: BOWEL/MESENTERY: The visualized small and large bowel demonstrate no acute abnormality. There is no free fluid. There are colonic diverticula in the sigmoid region without inflammatory change.BLADDER: There is no wall thickening or mass. RETROPERITONEUM: There is no aneurysm or lymphadenopathy. REPRODUCTIVE: Within normal limits. INGUINAL: There is no lymphadenopathy or hernia. MUSCULOSKELETAL: There is degenerative change in the lower lumbar spine. CONCLUSION: No acute abnormality is seen. There are scattered colonic diverticula. Shayne Guzmán MD on August 26, 2016 at 9:06 Board Certified Radiologist. This report was verified electronically.
[2016-08-26 09:24] VITALS: BP 112/64; PULSE 72; RESP 16; O2SAT 98
--- NOTE | 2016-08-26 11:27 | PD ---
HPI Chief Complaint: GI Complaint Time Seen by Provider: 07:50 Travel History International Travel<30 days: No Contact w/Intl Traveler<30days: No Traveled to known affect area: No History of Present Illness HPI Patient is a 51 year old male who comes in after he had a bloody bowel movement this morning. He said first he noticed some blood coming out of his rectum and then he had a large bloody bowel movement. He had a hemorrhoidectomy performed on August [address] Purvis. He said that he really has not had a bowel movement since then. He complains of a lot of pain to his rectum. He says he is very worried about the bleeding. He feels a little dizzy and his heart is racing. He has not had any issues since the surgery. He denies any abdominal pain, nausea, vomiting. He denies fever or chills. PFSH Past Medical History Arthritis: No Asthma: No Autoimmune Disease: No Blood Disorders: No Anxiety: No Depression: No Heart Rhythm Problems: No Cancer: No Cardiovascular Problems: Yes High Cholesterol: No Chemotherapy: No Chest Pain: No Congestive Heart Failure: No COPD: No Cerebrovascular Accident: No Diabetes: No Diminished Hearing: No Endocrine: No Gastrointestinal Disorders: No GERD: No Glaucoma: No Genitourinary: No Headaches: No Hepatitis: No Hiatal Hernia: No Hypertension: Yes Immune Disorder: No Kidney Stones: No Musculoskeletal: No Neurologic: No Psychiatric: No Reproductive: No Respiratory: No Migraines: No Myocardial Infarction: No Radiation Therapy: No Renal Failure: No Seizures: No Sickle Cell Disease: No Sleep Apnea: No Thyroid Disease: No Ulcer: No Tetanus Vaccination: < 5 Years Influenza Vaccination: No Past Surgical History Abdominal Surgery: No AICD: No Appendectomy: No Arteriovenous Shunt: No Cardiac Surgery: No Cholecystectomy: No Ear Surgery: No Endocrine Surgery: No Eye Surgery: No Genitourinary Surgery: No Gynecologic Surgery: No Insulin Pump: No Joint Replacement: No Neurologic Surgery: No Oral Surgery: No Pacemaker: No Thoracic Surgery: No Other Surgery: Yes Social History Alcohol Use: No Tobacco Use: Yes Substance Use: No Allergies-Medications (Allergen,Severity, Reaction): Coded Allergies: Penicillin (Verified Allergy, Severe, RASH, 08/15/16) Egg Allergy (Verified Allergy, Unknown, 08/15/16) Flu Vaccine (Verified Allergy, Unknown, 08/15/16) Reported Meds & Prescriptions Reported Meds & Active Scripts Active [Silv Sulfadiazine-Lidocaine Cr] 60 APPLIC/60 GM Cr 1 Applic RECTAL Q6HR PRN Oxycodone-Acetaminophen 10-325 mg Tab 2 Tab PO Q4H PRN Zofran Odt (Ondansetron Odt) 4 Mg Tab 4 Mg SL Q6HR PRN Reported Stool Softener (Docusate Sodium) 100 Mg Cap 100 Mg PO HS Enalapril (Enalapril Maleate) 10 Mg Tab 10 Mg PO BID Review of Systems Except as stated in HPI: all other systems reviewed are Neg General / Constitutional: No: Fever, Chills HENT: No: Headaches, Lightheadedness Cardiovascular: Positive: Palpitations, No: Chest Pain or Discomfort Respiratory: No: Shortness of Breath Gastrointestinal: No: Nausea, Vomiting, Abdominal Pain Musculoskeletal: No: Pain Skin: No Change in Pigmentation Neurologic: Positive: Dizziness Physical Exam Narrative GENERAL: Awake and alert, in mild distress. Appears anxious. SKIN: Focused skin assessment warm/dry. HEAD: Atraumatic. Normocephalic. EYES: Pupils equal and round. No scleral icterus. No conjunctival pallor. ENT: Mucous membranes pink and moist. NECK: Trachea midline. No JVD. CARDIOVASCULAR: Regular rate and rhythm. No murmur appreciated. RESPIRATORY: No accessory muscle use. Clear to auscultation. Breath sounds equal bilaterally. GASTROINTESTINAL: Abdomen soft, non-tender, nondistended. RECTAL: Blood around the rectum, very tender to palpation. MUSCULOSKELETAL: No obvious deformities. No clubbing. No cyanosis. No edema. NEUROLOGICAL: Awake and alert. No obvious cranial nerve deficits. Motor grossly within normal limits. Normal speech. PSYCHIATRIC: Appropriate mood and affect; insight and judgment normal. Data Data Last Documented VS Vital Signs Date Time Temp Pulse Resp B/P Pulse Ox O2 Delivery O2 Flow Rate FiO2 08/26/16 09:24 72 16 112/64 98 08/26/16 08:09 Room Air 08/26/16 07:13 97.7 Orders Complete Blood Count With Diff (08/26/16 07:57) Basic Metabolic Panel (Bmp) (08/26/16 07:57) Act Partial Throm Time (Ptt) (08/26/16 07:57) Prothrombin Time / Inr (Pt) (08/26/16 07:57) Type And Screen (08/26/16 07:57) Ct Pelvis W Iv Contrast(Rout) (08/26/16 ) Sodium Chlor 0.9% 1000 Ml Inj (Ns 1000 M (08/26/16 08:00) Morphine Inj (Morphine Inj) (08/26/16 08:00) Ondansetron Inj (Zofran Inj) (08/26/16 08:00) Iohexol 350 Inj (Omnipaque 350 Inj) (08/26/16 09:01) Oxycodone-Acetamin 5-325 Mg (Percocet (08/26/16 11:30) Labs Laboratory Tests Test 08/26/16 08:00 White Blood Count 19.7 TH/MM3 Red Blood Count 4.10 MIL/MM3 Hemoglobin 13.1 GM/DL Hematocrit 39.4 % Mean Corpuscular Volume 96.1 FL Mean Corpuscular Hemoglobin 31.9 PG Mean Corpuscular Hemoglobin 33.2 % Concent Red Cell Distribution Width 13.6 % Platelet Count 467 TH/MM3 Mean Platelet Volume 7.8 FL Neutrophils (%) (Auto) 90.1 % Lymphocytes (%) (Auto) 5.1 % Monocytes (%) (Auto) 3.9 % Eosinophils (%) (Auto) 0.3 % Basophils (%) (Auto) 0.6 % Neutrophils # (Auto) 17.8 TH/MM3 Lymphocytes # (Auto) 1.0 TH/MM3 Monocytes # (Auto) 0.8 TH/MM3 Eosinophils # (Auto) 0.1 TH/MM3 Basophils # (Auto) 0.1 TH/MM3 CBC Comment DIFF FINAL Differential Comment Prothrombin Time 11.3 SEC Prothromb Time International 1.0 RATIO Ratio Activated Partial 31.3 SEC Thromboplast Time Sodium Level 137 MEQ/L Potassium Level 4.3 MEQ/L Chloride Level 105 MEQ/L Carbon Dioxide Level 23.1 MEQ/L Anion Gap 9 MEQ/L Blood Urea Nitrogen 13 MG/DL Creatinine 1.12 MG/DL Estimat Glomerular Filtration 69 ML/MIN Rate Random Glucose 92 MG/DL Calcium Level 9.3 MG/DL Blood Type O POSITIVE Antibody Screen NEGATIVE Blood Bank Comment MDM Medical Decision Making Medical Screen Exam Complete: Yes Emergency Medical Condition: Yes Medical Record Reviewed: Yes Differential Diagnosis GI bleed versus surgical complication versus infection Narrative Course Patient is a 51-year-old male who comes in after having a bloody bowel movement. Exam shows blood around the rectum and rectum is tender to palpation. IV established, labs sent. Labs do show a white blood cell count of 19.7, hemoglobin is 13.1. Patient given Morphine for pain. CT pelvis performed, shows some diverticuli, no diverticulitis, no other abnormalities. Last [address] 08/26/16 0000 Signed Impressions: Service Date/Time: Friday, August 26, 2016 08:46 - CONCLUSION: No acute abnormality is seen. There are scattered colonic diverticula. MD Dr. Sudarshan Swenson, financial services education consultant for colorectal surgery came to see the patient. He says this is common after hemorrhoidectomy. He says patient can go home and follow- up at his scheduled appointment with Dr. Purvis. Patient is feeling better after pain medicine. He is comfortable with this plan. I explained to him if he has continuous bleeding that he should return. He had no more bleeding while in the emergency department. Will be discharged home to follow-up with his colorectal surgeon. Diagnosis Primary Impression: Blood in stool, vivienne Patient Instructions: General Instructions, Hemorrhoidectomy (ED) Additional Instructions: Follow up with Dr. Purvis at your scheduled appointment. Take pain medicine as needed. Return to the ED as needed for any worsening symptoms. Disposition: 01 DISCHARGE HOME Condition: Stable Joanna Starkey MD Aug 26, 2016 11:27
[2016-08-26] MEDS ORDERED: oxyCODONE/ACETAMINOPHEN 5 MG/325 MG TAB PO ONE (11:30)
== END 2016-08-26 12:01 | disposition home or self-care (01) ==
LOC: NEPE 07:11
DX: K92.1 Melena (principal); R42 Dizziness and giddiness
CPT/HCPCS: 72193; 80048; 85025; 85610; 85730; 86850; 86900; 86901; 96361; 96374; 96375; 99284; J2270; J2405; J7030; Q9967